=== PATIENT | female | born 1960 | race Caucasian/White ===

== ENCOUNTER 2020-11-26 15:06 | Emergency (ER) | payer BC ==
[2020-11-26 15:16] VITALS: BP 139/70; PULSE 91; RESP 20; TEMP 98
--- NOTE | 2020-11-26 15:31 | ED ---
General Adult HPI - General Chief complaint: Animal Bite Stated complaint: Dog Bite Time Seen by Provider: 11/26/20 15:18 Source: patient Mode of arrival: ambulatory Limitations: no limitations - History of Present Illness Initial comments: Dictation was produced using [employer] dictation software. please excuse any grammatical, word or spelling errors. Chief Complaint: 60-year-old female presents with dog bite to the right index finger History of Present Illness: 60-year-old female she was bitten to her right index finger by her dog. Dog has up-to-date vaccinations. Patient denies any numbness and paresthesias. Dog bite occurred at approximately 2:30 PM. Patient has no other complaints. No ALLERGIES. The dog that bit the patient was their dog and has up-to-date vaccinations. Patient showing any aggressive behavior or strange behavior recently. Patient has up-to-date tetanus vaccination. The ROS documented in this emergency department record has been reviewed and confirmed by me. Those systems with pertinent positive or negative responses have been documented in the HPI. All other systems are other negative and/or noncontributory. PHYSICAL EXAM: General Impression: Alert and oriented x3, not in acute distress HEENT: Normocephalic atraumatic, extra-ocular movements intact, pupils equal and reactive to light bilaterally, mucous membranes moist. Cardiovascular: Heart regular rate and rhythm Chest: Able to complete full sentences, no retractions, no tachypnea Abdomen: abdomen soft, non-tender, non-distended, no organomegaly Musculoskeletal: Pulses present and equal in all extremities, no peripheral edema Motor: no focal deficits noted Neurological: CN II-XII grossly intact, no focal motor or sensory deficits noted Skin: Intact with no visualized rashes Psych: Normal affect and mood Right finger: Small 1 cm avulsion laceration to the right lateral index finger ED course: 60-year-old female presents to the emergency department for laceration to the right index finger secondary to dog bite. Vital signs upon arrival are within acceptable limits. X-ray shows no acute processes. Laceration was loosely sutured. Patient given prescription for Augmentin. Patient will be discharged. - Related Data Previous Rx's Medication Instructions Recorded Amoxic-Pot Clav 875-125Mg 1 tab PO BID 5 Days #10 tab 11/26/20 [Augmentin 875-125] Allergies Allergy/AdvReac Type Severity Reaction Status Date / Time No Known Allergies Allergy Verified 11/26/20 15:16 Review of Systems ROS Statement: Those systems with pertinent positive or pertinent negative responses have been documented in the HPI. ROS Other: All systems not noted in ROS Statement are negative. Past Medical History History of Any Multi-Drug Resistant Organisms: None Reported Past Surgical History: Appendectomy Additional Past Surgical History / Comment(s): carpal tunnel x 2 Past Psychological History: No Psychological Hx Reported Smoking Status: Current every day smoker Past Alcohol Use History: Occasional Past Drug Use History: None Reported General Exam Limitations: no limitations Course Vital Signs 11/26/20 15:13 Temperature 98.0 F Pulse Rate 91 Respiratory 20 Rate Blood Pressure 139/70 O2 Sat by Pulse 95 Oximetry Disposition Clinical Impression: Bite by animal Disposition: HOME SELF-CARE Instructions (If sedation given, give patient instructions): Animal Bite (ED) Additional Instructions: Suture removal in 5-7 days Prescriptions: Amoxic-Pot Clav 875-125Mg [Augmentin 875-125] 1 tab PO BID 5 Days #10 tab Is patient prescribed a controlled substance at d/c from ED?: No Referrals: Nonstaff,Physician [Primary Care Provider] - 1-2 days
--- NOTE | 2020-11-26 15:56 | XR ---
EXAMINATION TYPE: XR finger RT DATE OF EXAM: 11/26/2020 COMPARISON: NONE HISTORY: Pain TECHNIQUE: 3 views FINDINGS: I see no fracture nor dislocation. There is some mild cystic changes at the base of the mid dle phalanx that could relate to an old injury. There is mild spurring at the IP joints. IMPRESSION: No acute abnormality of the right index finger.
[2020-11-26] MEDS: LIDOCAINE 1% INJ 10MG/ML (20 ML MDV) SQ ONE ×2 (16:05→16:08)
--- NOTE | 2020-11-26 16:35 | ED ---
Medical Decision Making - Medical Decision Making She denies ALLERGY to Augmentin however she states she took it recently and had some adverse effects. She requested being started on something else. Patient given prescription for clindamycin. Disposition Clinical Impression: Bite by animal Disposition: HOME SELF-CARE Instructions (If sedation given, give patient instructions): Animal Bite (ED) Additional Instructions: Suture removal in 5-7 days Prescriptions: Clindamycin [Cleocin] 450 mg PO Q8H 5 Days #45 cap Is patient prescribed a controlled substance at d/c from ED?: No Referrals: Nonstaff,Physician [Primary Care Provider] - 1-2 days
== END 2020-11-26 16:33 | disposition home or self-care (01) ==
LOC: EC 15:06
DX: S61.250A Open bite of right index finger without damage to nail, initial encounter (principal); F17.200 Nicotine dependence, unspecified, uncomplicated; W54.0XXA Bitten by dog, initial encounter
CPT/HCPCS: 73140; 99283; 12001; J2001